=== PATIENT | male | born 1970 | race African-American/Black ===

== ENCOUNTER 2020-05-30 04:54 | Inpatient (IN) | payer MEDICAID ==
[~2020-05-30] VITALS: Ht 167.6 cm; Wt 76.7 kg
[2020-05-30] MEDS ORDERED: PIPERACILLIN/TAZ 3.375G PREMIX 50 ML IV ONE (08:15)
[2020-05-30] MEDS ORDERED: ACETAMINOPHEN 325MG TABLET PO STA (08:15)
[2020-05-30] MEDS ORDERED: VANCOMYCIN 1 G PREMIX 200 ML IV ONE (08:15)
[2020-05-30] MEDS ORDERED: SODIUM CHLORIDE 0.9% 1,000 ML IV ONE (08:15)
[2020-05-30 08:54] LABS: BASOPHILS % 0.4 % (0.0-2.0); HEMOGLOBIN. 14.8 g/dL (14.0-18.0); LYMPHOCYTES % 15.6 % (20.0-50.0); MEAN CORPUSCULAR HEMOGLOBIN 29.1 pg (28.0-32.0); MEAN CORPUSCULAR VOLUME 84.4 fL (80.0-94.0); MEAN PLATELET VOLUME 8.3 fl (7.4-10.4); MONOCYTES % 10.3 % (2.0-8.0); NEUTROPHILS % 73.7 % (40.0-76.0); PLATELET 274 x1000/uL (130-400); RED CELL DISTRIBUTION WIDTH 12.9 % (11.6-14.6)
[2020-05-30 09:01] LABS: CHLORIDE 83 mEq/L (98-107)
[2020-05-30 09:08] LABS: D-DIMER 0.27 mg/L FEU (<0.50); PROTHROMBIN TIME 10.8 sec (9.6-11.0)
[2020-05-30] MEDS ORDERED: KCL 10MEQ/50ML PREMIX 50 ML IV ONE (10:00)
[2020-05-30] MEDS ORDERED: POTASSIUM CHLORIDE 20MEQ TABLET SR PO ONE (10:00)
[2020-05-30 10:04] LABS: CLARITY URINE CLEAR (CLEAR); COLOR URINE YELLOW (YELLOW); KETONES URINE NEGATIVE (NEGATIVE); LEUKOCYTE ESTERASE URINE NEGATIVE (NEGATIVE); NITRITE URINE NEGATIVE (NEGATIVE); OCCULT BLOOD URINE 1+ (NEGATIVE); PROTEIN URINE 3+ (NEGATIVE); SPECIFIC GRAVITY URINE 1.009 (1.005-1.030)
[2020-05-30] MEDS: SODIUM CHLORIDE 0.9% 1,000 ML IV SCH (12:00)
[2020-05-30] MEDS ORDERED: ONDANSETRON HCL 4MG/2ML INJ IV PRN (12:00)
[2020-05-30] MEDS ORDERED: CEFTRIAXONE 1 G PREMIX 50 ML IV SCH (12:00)
[2020-05-30] MEDS: AZITHROMYCIN 250 MG TABLET PO SCH (12:08)
[2020-05-30] MEDS: ENOXAPARIN 80MG/0.8ML SYR SUBCUT SCH ×2 (12:13→21:06)
[2020-05-30 14:20] VITALS: BP 120/64
[2020-05-30] MEDS ORDERED: HYDR12.54 PO (15:28)
[2020-05-30] MEDS ORDERED: AMLO5TAB88 PO (15:30)
[2020-05-30] MEDS ORDERED: LOSA50TA41 PO (15:31)
[2020-05-30 16:00] VITALS: BP 129/74
[2020-05-30 17:02] LABS: BG BASE EXCESS 4.2 mmol/L (-2.0-2.0); BG CARBOXYHEMOGLOBIN 0.5 % (0.5-1.5); BG DEOXYHEMOGLOBIN 16.8 % (0.0-5.0); BG HCO3 ACT 28.2 mmol/L (22.0-26.0); BG METHEMOGLOBIN 0.3 % (0.0-1.5); BG OXYGEN SATURATION 83.1 % (92.0-98.5); BG OXYHEMOGLOBIN 82.4 % (94.0-97.0); BG PH 7.466 (7.350-7.450); BG PO2 46.2 mmHg (75.0-100.0); BG SAMPLE SITE LEFT RADIAL; BG TOTAL HEMOGLOBIN 13.9 g/dL (12.0-18.0); BG VENT MODE ROOM AIR
[2020-05-30] MEDS: ALBUTEROL 6.7GM HFA INHALER ORI SCH ×2 (17:36→23:21)
[2020-05-30] MEDS: DEXAMETHASONE 4MG TABLET PO SCH (17:36)
[2020-05-30 20:00] VITALS: BP 110/63
[2020-05-30] MEDS ORDERED: POTASSIUM CHLORIDE 20MEQ TABLET SR PO NR (22:30)
[2020-05-31] VITALS: BP 110/67
[2020-05-31 04:00] VITALS: BP 112/70
[2020-05-31 05:54] LABS: BASOPHILS % 0.2 % (0.0-2.0); HEMATOCRIT. 40.3 % (42.0-52.0); HEMOGLOBIN. 13.8 g/dL (14.0-18.0); LYMPHOCYTES % 10.1 % (20.0-50.0); MEAN CORPUSCULAR HEMOGLOBIN 29.4 pg (28.0-32.0); MEAN CORPUSCULAR VOLUME 85.8 fL (80.0-94.0); MEAN PLATELET VOLUME 8.1 fl (7.4-10.4); MONOCYTES % 4.9 % (2.0-8.0); NEUTROPHILS % 84.8 % (40.0-76.0); PLATELET 307 x1000/uL (130-400)
[2020-05-31] MEDS: ALBUTEROL 6.7GM HFA INHALER ORI SCH ×2 (05:54→23:00)
[2020-05-31 07:19] LABS: CHLORIDE 94 mEq/L (98-107)
[2020-05-31 08:00] VITALS: BP 122/78
[2020-05-31] MEDS ORDERED: HYDROCHLOROTHIAZIDE 12.5MG CAPSULE PO SCH (09:00)
[2020-05-31] MEDS ORDERED: AMLODIPINE 5MG TABLET PO SCH (09:00)
[2020-05-31] MEDS ORDERED: LOSARTAN POTASSIUM 50 MG TABLET PO SCH (09:00)
[2020-05-31] MEDS: ENOXAPARIN 80MG/0.8ML SYR SUBCUT SCH ×2 (09:23→21:17)
[2020-05-31] MEDS: DEXAMETHASONE 4MG TABLET PO SCH (09:23)
[2020-05-31] MEDS: AZITHROMYCIN 250 MG TABLET PO SCH (09:23)
[2020-05-31] MEDS: SODIUM CHLORIDE 0.9% 1,000 ML IV SCH (09:49)
[2020-05-31 12:00] VITALS: BP 122/70
[2020-05-31] MEDS: CEFTRIAXONE 1,000 MG in DEXTROSE 5% WATER 50 ML IV SCH (12:19)
[2020-05-31 16:00] VITALS: BP 131/74
[2020-05-31 20:28] VITALS: BP 132/79
[2020-06-01] VITALS: BP 136/77
[2020-06-01] MEDS: BENZONATATE 100MG CAPSULE PO PRN ×2 (00:47→16:51)
[2020-06-01] MEDS: SODIUM CHLORIDE 0.9% 1,000 ML IV SCH ×2 (03:11→12:32)
[2020-06-01 04:00] VITALS: BP 117/73
[2020-06-01] MEDS: ALBUTEROL 6.7GM HFA INHALER ORI SCH ×4 (05:21→23:08)
[2020-06-01 08:00] VITALS: BP 108/72
[2020-06-01] MEDS: AZITHROMYCIN 250 MG TABLET PO SCH (08:54)
[2020-06-01] MEDS: ENOXAPARIN 80MG/0.8ML SYR SUBCUT SCH (08:55)
[2020-06-01] MEDS: DEXAMETHASONE 4MG TABLET PO SCH (08:55)
[2020-06-01 12:00] VITALS: BP 117/74
[2020-06-01] MEDS: CEFTRIAXONE 1,000 MG in DEXTROSE 5% WATER 50 ML IV SCH (12:39)
[2020-06-01] MEDS: ACETAMINOPHEN 325MG TABLET PO PRN ×2 (12:43→20:35)
[2020-06-01] MEDS ORDERED: DEXTROSE 50% WATER 50ML SYRINGE IV PRN (14:00)
[2020-06-01 16:00] VITALS: BP 126/68
[2020-06-01] MEDS ORDERED: REMDESIVIR 200 MG in SODIUM CHLORIDE 0.9% 250 ML IV NR (16:30)
[2020-06-01] MEDS: BLOOD SUGAR DIAGNOSTIC STRIP TEST SCH ×2 (16:55→20:35)
[2020-06-01] MEDS: INSULIN LISPRO 100 UNITS/ML SUBCUT SCH ×2 (17:19→20:34)
[2020-06-01 20:00] VITALS: BP 127/72
[2020-06-02] VITALS (7 sets, daily range): BP systolic 121–152; BP diastolic 70–82
[2020-06-02] MEDS: ALBUTEROL 6.7GM HFA INHALER ORI SCH ×3 (06:08→17:45)
[2020-06-02] MEDS: BLOOD SUGAR DIAGNOSTIC STRIP TEST SCH ×4 (07:40→20:33)
[2020-06-02] MEDS: INSULIN LISPRO 100 UNITS/ML SUBCUT SCH ×4 (08:10→20:34)
[2020-06-02] MEDS: AZITHROMYCIN 250 MG TABLET PO SCH (08:35)
[2020-06-02] MEDS: ENOXAPARIN 40MG/0.4ML SYR SUBCUT SCH (08:35)
[2020-06-02] MEDS: DEXAMETHASONE 4MG TABLET PO SCH (08:35)
[2020-06-02] MEDS: SODIUM CHLORIDE 0.9% 1,000 ML IV SCH (09:23)
[2020-06-02 09:35] LABS: CHLORIDE 104 mEq/L (98-107)
[2020-06-02] MEDS: CEFTRIAXONE 1,000 MG in DEXTROSE 5% WATER 50 ML IV SCH (11:31)
[2020-06-02] MEDS: REMDESIVIR 100 MG in SODIUM CHLORIDE 0.9% 250 ML IV SCH (16:35)
[2020-06-03 04:00] VITALS: BP 143/88
[2020-06-03] MEDS: ALBUTEROL 6.7GM HFA INHALER ORI SCH ×4 (05:16→23:26)
[2020-06-03] MEDS: INSULIN LISPRO 100 UNITS/ML SUBCUT SCH ×4 (07:23→20:07)
[2020-06-03] MEDS: BLOOD SUGAR DIAGNOSTIC STRIP TEST SCH ×4 (07:23→20:07)
[2020-06-03 08:00] VITALS: BP 148/70
[2020-06-03] MEDS: ENOXAPARIN 40MG/0.4ML SYR SUBCUT SCH (08:20)
[2020-06-03] MEDS: AZITHROMYCIN 250 MG TABLET PO SCH (08:21)
[2020-06-03] MEDS: DEXAMETHASONE 4MG TABLET PO SCH (08:21)
[2020-06-03 12:00] VITALS: BP 146/76
[2020-06-03] MEDS: CEFTRIAXONE 1,000 MG in DEXTROSE 5% WATER 50 ML IV SCH (13:07)
[2020-06-03 13:33] LABS: CHLORIDE 105 mEq/L (98-107)
[2020-06-03 16:00] VITALS: BP 135/68
[2020-06-03] MEDS: REMDESIVIR 100 MG in SODIUM CHLORIDE 0.9% 250 ML IV SCH (16:06)
[2020-06-03] MEDS: SODIUM CHLORIDE 0.9% 1,000 ML IV SCH (16:06)
[2020-06-03 20:00] VITALS: BP 146/76
[2020-06-04] VITALS: BP 156/80
[2020-06-04 04:00] VITALS: BP 155/83
[2020-06-04] MEDS: ALBUTEROL 6.7GM HFA INHALER ORI SCH ×3 (05:38→17:41)
[2020-06-04 05:46] LABS: CHLORIDE 106 mEq/L (98-107)
[2020-06-04] MEDS: BLOOD SUGAR DIAGNOSTIC STRIP TEST SCH ×4 (07:35→23:05)
[2020-06-04] MEDS: INSULIN LISPRO 100 UNITS/ML SUBCUT SCH ×4 (07:36→23:05)
[2020-06-04 08:00] VITALS: BP 131/81
[2020-06-04] MEDS: AZITHROMYCIN 250 MG TABLET PO SCH (09:38)
[2020-06-04] MEDS: ENOXAPARIN 40MG/0.4ML SYR SUBCUT SCH (09:38)
[2020-06-04] MEDS: DEXAMETHASONE 4MG TABLET PO SCH (09:39)
[2020-06-04] MEDS: CEFTRIAXONE 1,000 MG in DEXTROSE 5% WATER 50 ML IV SCH (11:22)
[2020-06-04] MEDS: SODIUM CHLORIDE 0.9% 1,000 ML IV SCH (11:22)
[2020-06-04 12:00] VITALS: BP 132/76
[2020-06-04] MEDS ORDERED: METF-414 MT (12:20)
[2020-06-04 16:00] VITALS: BP 124/80
[2020-06-04] MEDS: REMDESIVIR 100 MG in SODIUM CHLORIDE 0.9% 250 ML IV SCH (16:25)
[2020-06-04 20:00] VITALS: BP 119/74
[2020-06-05] VITALS: BP 122/66
[2020-06-05] MEDS: ALBUTEROL 6.7GM HFA INHALER ORI SCH ×3 (01:57→12:46)
[2020-06-05 04:00] VITALS: BP 156/76
[2020-06-05 06:08] LABS: CHLORIDE 102 mEq/L (98-107)
[2020-06-05] MEDS: BLOOD SUGAR DIAGNOSTIC STRIP TEST SCH ×2 (06:18→12:45)
[2020-06-05] MEDS: SODIUM CHLORIDE 0.9% 1,000 ML IV SCH (06:42)
[2020-06-05] MEDS: INSULIN LISPRO 100 UNITS/ML SUBCUT SCH ×2 (07:37→12:45)
[2020-06-05 08:00] VITALS: BP 128/79
[2020-06-05] MEDS: ENOXAPARIN 40MG/0.4ML SYR SUBCUT SCH (08:37)
[2020-06-05] MEDS: DEXAMETHASONE 4MG TABLET PO SCH (08:38)
[2020-06-05 12:00] VITALS: BP 133/79
[2020-06-05] MEDS: CEFTRIAXONE 1,000 MG in DEXTROSE 5% WATER 50 ML IV SCH (12:46)
[2020-06-05] MEDS: ACETAMINOPHEN 325MG TABLET PO PRN (13:30)
[2020-06-05 14:39] VITALS: BP 133/79
[2020-06-05] MEDS: REMDESIVIR 100 MG in SODIUM CHLORIDE 0.9% 250 ML IV SCH (15:05)
[2020-06-05 16:00] VITALS: BP 141/78
== END 2020-06-05 16:11 | disposition home or self-care (01) | DRG 720 ==
LOC: ER 06:25 → EDBEDREQ 10:08 → EDBEDREQTM 10:08 → 7WST 11:17 → EDBEDREQTM 11:22 → EDBEDREQ 11:22 → ENRESERV 13:40 → EDBEDREQ 13:51 → ER 14:14
PROVIDERS: ADMIT Internal Medicine; ATTEND Internal Medicine
PROC: XW033E5 Introduction of Remdesivir Anti-infective into Peripheral Vein, Percutaneous Approach, New Technology Group 5 (ICD-10-PCS; principal; 2020-06-01)
PROC: XW033E5 Introduction of Remdesivir Anti-infective into Peripheral Vein, Percutaneous Approach, New Technology Group 5 (ICD-10-PCS; 2020-06-05)
DX: A41.89 Other specified sepsis (principal); U07.1 COVID-19; J96.01 Acute respiratory failure with hypoxia; J12.89 Other viral pneumonia; D68.59 Other primary thrombophilia; E11.9 Type 2 diabetes mellitus without complications; E44.1 Mild protein-calorie malnutrition; R74.0 Nonspecific elevation of levels of transaminase and lactic acid dehydrogenase [LDH]; E87.1 Hypo-osmolality and hyponatremia; E87.6 Hypokalemia; E87.8 Other disorders of electrolyte and fluid balance, not elsewhere classified; I10 Essential (primary) hypertension; Z79.899 Other long term (current) drug therapy; Z68.27 Body mass index [BMI] 27.0-27.9, adult
CPT/HCPCS: 36415; 36600; 71045; 80048; 80053; 81003; 82375; 82728; 82805; 82962; 83036; 83605; 83735; 84132; 84145; 84484; 85025; 85379; 85384; 87426; 87635; 93005; 99291; J0696; J1650; J1815; J2543; J3370; J3480; J7030; J7050; J7060; J8540; Q9957